=== PATIENT | female | born 1985 | race Caucasian/White ===

== ENCOUNTER 2017-10-17 20:10 | Emergency (ER) | payer OTHER ==
[~2017-10-17] VITALS: Ht 149.9 cm; Wt 64.6 kg
[2017-10-17 20:42] VITALS: Ht 149.9 cm; Wt 64.6 kg
[2017-10-17 22:10] VITALS: BP 118/69
== END 2017-10-17 22:10 | disposition home or self-care (01) ==
LOC: ED 20:10
DX: M79.671 Pain in right foot (principal)

== ENCOUNTER 2017-11-11 00:07 | Emergency (ER) | payer OTHER ==
[~2017-11-11] VITALS: Ht 149.9 cm; Wt 65.8 kg
[2017-11-11 00:13] VITALS: Ht 149.9 cm; Wt 65.8 kg
[2017-11-11 00:44] VITALS: BP 109/81
== END 2017-11-11 00:44 | disposition home or self-care (01) ==
LOC: ED 00:07
DX: R21 Rash and other nonspecific skin eruption (principal)

== ENCOUNTER 2017-11-16 00:15 | Emergency (ER) | payer OTHER ==
[~2017-11-16] VITALS: Ht 149.9 cm; Wt 65.0 kg
[2017-11-16 00:26] VITALS: Ht 149.9 cm; Wt 65.0 kg
[2017-11-16 01:14] VITALS: BP 120/94
== END 2017-11-16 01:14 | disposition home or self-care (01) ==
LOC: ED 00:15
DX: L29.9 Pruritus, unspecified (principal)
CPT/HCPCS: Q0163

== ENCOUNTER 2018-11-03 13:40 | Emergency (ER) | payer OTHER ==
[~2018-11-03] VITALS: Ht 149.9 cm; Wt 68.0 kg
[2018-11-03 13:46] VITALS: BP 131/86; Ht 149.9 cm; Wt 68.0 kg
[2018-11-03 16:07] LABS: BASOPHIL % 0.3 % (0-2); PLATELET COUNT 301 x10^3mcL (130-400); RED CELL DISTRIBUTION WIDTH 13.3 % (11.5-14.5)
[2018-11-03 16:39] LABS: CALCIUM 8.8 mg/dL (8.5-10.1); CARBON DIOXIDE 29.1 mmol/L (21-32); CHLORIDE SERUM 101 mmol/L (98-107); CREATININE SERUM 0.7 mg/dL (0.6-1.0); GFR1 > 60 mL/min; GLUCOSE SERUM 116 mg/dL (74-106); POTASSIUM SERUM 3.5 mmol/L (3.5-5.1); SODIUM SERUM 139 mmol/L (136-145)
[2018-11-03 16:43] LABS: ALKALINE PHOSPHATASE 67 U/L (46-116); ALT/SGPT 29 U/L (14-59); AST/SGOT 17 U/L (15-37); BILIRUBIN TOTAL 0.3 mg/dL (0.20-1.00); LIPASE 157 IU/L (73-393)
== END 2018-11-03 17:46 | disposition home or self-care (01) ==
LOC: ED 13:40
DX: K21.9 Gastro-esophageal reflux disease without esophagitis (principal); N39.0 Urinary tract infection, site not specified
CPT/HCPCS: 36415; Q0162

== ENCOUNTER 2019-07-01 12:28 | Emergency (ER) | payer OTHER ==
[~2019-07-01] VITALS: Ht 157.5 cm; Wt 61.7 kg
[2019-07-01 12:52] VITALS: Ht 157.5 cm; Wt 61.7 kg
[2019-07-01 14:04] VITALS: BP 110/76
== END 2019-07-01 14:04 | disposition home or self-care (01) ==
LOC: ED 12:28
DX: J11.1 Influenza due to unidentified influenza virus with other respiratory manifestations (principal); Z98.890 Other specified postprocedural states
CPT/HCPCS: 87804; J1885; Q0162